=== PATIENT | female | born 1990 ===

== ENCOUNTER 2017-12-11 17:25 | Emergency (ER) | payer OTHER ==
[~2017-12-11] VITALS: Ht 170.2 cm; Wt 90.0 kg
[~2017-12-11 17:25] MED LIST: DOXYCYCLINE HY100 MG PO; NAPROXEN500 MG PO
== END 2017-12-11 22:15 | disposition home or self-care (01) ==
LOC: ER 17:25
DX: S13.4XXA Sprain of ligaments of cervical spine, initial encounter (principal); S63.501A Unspecified sprain of right wrist, initial encounter; S40.011A Contusion of right shoulder, initial encounter; W18.39XA Other fall on same level, initial encounter; Y93.89 Activity, other specified; Y92.89 Other specified places as the place of occurrence of the external cause; Y99.8 Other external cause status